=== PATIENT | male | born 1965 | race Hispanic/Latino ===

== ENCOUNTER 2017-04-30 11:24 | Emergency (ER) | payer MEDICAID ==
[2017-04-30 11:45] VITALS: BP 125/87; PULSE 77; RESP 18; TEMP 97.9; O2SAT 99
--- NOTE | 2017-04-30 13:08 | C.PDOC ---
History Of Present Illness 51 year old male presents to the ED c/o mild facial swelling and dental pain to right upper mouth for the past few weeks. Pain worsened in the past few days. Patient is partially edentulous and remaining teeth are all carious or broken. Patient denies fever, chills, vomit, nausea, abdominal pain, diarrhea. Time Seen by Provider: 04/30/17 11:53 Chief Complaint (Nursing): Dental Pain History Per: Patient History/Exam Limitations: no limitations Onset/Duration Of Symptoms: Days Quality: Positive for: "Pain" Recent travel outside of the [place]: No Additional History Per: Patient Past Medical History Reviewed: Historical Data, Nursing Documentation, Vital Signs Vital Signs: Last Vital Signs Temp 97.9 F 04/30/17 11:44 Pulse 77 04/30/17 11:44 Resp 18 04/30/17 11:44 BP 125/87 04/30/17 11:44 Pulse Ox 99 05/01/17 18:50 - Medical History PMH: No Chronic Diseases Surgical History: No Surg Hx Family History: States: Unknown Family Hx - Social History Hx Alcohol Use: No Hx Substance Use: No - Immunization History Hx Tetanus Toxoid Vaccination: No Hx Influenza Vaccination: No Hx Pneumococcal Vaccination: No Review Of Systems Constitutional: Negative for: Fever, Chills Eyes: Negative for: Vision Change ENT: Positive for: Mouth Swelling. Negative for: Throat Pain Cardiovascular: Negative for: Chest Pain, Palpitations Respiratory: Negative for: Cough, Shortness of Breath Gastrointestinal: Negative for: Nausea, Vomiting, Abdominal Pain Skin: Negative for: Rash Neurological: Negative for: Weakness, Numbness Physical Exam - Physical Exam Appears: Non-toxic, No Acute Distress Skin: Normal Color, Warm, Dry Head: Atraumatic, Normacephalic, Swelling (mild facial right side) Eye(s): bilateral: Normal Inspection Nose: No Discharge Oral Mucosa: Moist Tongue: Normal Appearing Lips: No Swelling Teeth: Caries (in multiple teeth), Edentulous (partly), Tender To Palpation ( upper right tooth) Gingiva: Swelling (upper right), Tender (right upper) Throat: No Erythema, No Exudate Neck: Normal ROM, Supple Neurological/Psych: Oriented x3, Normal Speech, Normal Cognition Gait: Steady ED Course And Treatment O2 Sat by Pulse Oximetry: 99 (On RA) Pulse Ox Interpretation: Normal Medical Decision Making Medical Decision Making: Plan: * Amoxicillin 500 mg PO * Motrin 600 mg PO Follow up with dentist Disposition Counseled Patient/Family Regarding: Diagnosis, Need For Followup, Rx Given - Disposition Disposition: HOME/ ROUTINE Disposition Time: 13:08 Condition: GOOD Additional Instructions: Please take antibiotics and ibuprofen as prescribed. Follow up with a dentist as soon as possible. Check provided lists for dentists. Return to ER for worse swelling, pain, fever or any other concerns. Prescriptions: Acetaminophen [Tylenol 325mg tab] 650 mg PO Q6 #30 tab Amoxicillin [Amoxil 500 mg Cap] 500 mg PO TID #21 cap Ibuprofen [Motrin] 600 mg PO TID #30 tab Instructions: Tooth Abscess (DC) Forms: [facility] (Bel[place]ian), General Discharge Instructions - Clinical Impression Clinical Impression: Dental abscess - PA / [employer] / Resident Statement MD/DO has reviewed & agrees with the documentation as recorded. - Scribe Statement The provider has reviewed the documentation as recorded by the Scribe Jv Cotto All medical record entries made by the Scribe were at my direction and personally dictated by me. I have reviewed the chart and agree that the record accurately reflects my personal performance of the history, physical exam, medical decision making, and the department course for this patient. I have also personally directed, reviewed, and agree with the discharge instructions and disposition.
== END 2017-04-30 13:20 | disposition home or self-care (01) ==
LOC: C.ER 11:24
DX: K04.7 Periapical abscess without sinus (principal)